=== PATIENT | female | born 1940 | race Asian ===

== ENCOUNTER 2017-08-16 17:30 | Emergency (ER) | payer MEDICARE ==
[~2017-08-16] VITALS: Ht 149.9 cm; Wt 52.3 kg
[~2017-08-16 17:30] MED LIST: ASPI-1198 PO; ATEN100T PO; CALC-590 PO; GINK30CA PO; HYDR25TA PO; MULT1TAB PO; PYRI50TA9 PO; VITA100024 PO
[2017-08-16] MEDS ORDERED: METO50 PO (17:46)
[2017-08-16] MEDS ORDERED: LOSA50TA37 PO (17:46)
[2017-08-16] MEDS: ACETAMINOPHEN 500 MG TABLET PO ONE ×2 (19:31→19:49)
[2017-08-16 19:52] LABS: BASOPHILS % (AUTO) 0.8 % (0.0-2.0); EOSINOPHILS % (AUTO) 1.9 % (1.0-6.0); HEMATOCRIT 31.4 % (36-46); HEMOGLOBIN 10.4 g/dL (12.0-16.0); LYMPHOCYTES # (AUTO) 0.7 K/uL (1.0-4.8); LYMPHOCYTES % (AUTO) 17.6 % (22.0-44.0); MEAN CORPUSCULAR HEMOGLOBIN 31.5 pg (26.0-34.0); MEAN CORPUSCULAR HGB CONC 33.3 G/dL (31.0-37.0); MEAN CORPUSCULAR VOLUME 95 fL (80-100); MONOCYTES # (AUTO) 0.5 K/uL (0.1-1.0); MONOCYTES % (AUTO) 14.2 % (2.0-9.0); NEUTROPHILS # (AUTO) 2.5 K/uL (1.8-7.7); NEUTROPHILS % (AUTO) 65.5 % (40.0-70.0); PLATELET COUNT (AUTO) 168 K/uL (150-450); RED BLOOD CELL COUNT(AUTO) 3.31 MIL/uL (4.00-5.20); RED CELL DISTRIBUTION WIDTH 13.8 % (11.5-14.5)
[2017-08-16] MEDS: METOPROLOL TARTRATE 50 MG TABLET PO ONE ×2 (19:56→20:03)
[2017-08-16 20:01] LABS: CALCIUM, TOTAL 8.5 mg/dL (8.8-10.5); CREATININE 0.91 mg/dL (0.60-1.30); POTASSIUM 3.4 mmol/L (3.5-5.1)
[2017-08-16 20:07] LABS: ALBUMIN 3.4 g/dL (3.4-5.0); BILIRUBIN,TOTAL 0.4 mg/dL (0.1-1.0); TOTAL PROTEIN, SERUM 7.4 g/dL (6.4-8.2)
[2017-08-16 20:57] VITALS: BP 181/68
[2017-08-16 20:58] LABS: PLATELET MORPHOLOGY COMMENT NORMAL
== END 2017-08-16 21:21 | disposition home or self-care (01) ==
LOC: EMS 17:32
DX: I10 Essential (primary) hypertension (principal); J40 Bronchitis, not specified as acute or chronic; Z79.82 Long term (current) use of aspirin
CPT/HCPCS: 93005; 99285

== ENCOUNTER 2017-08-23 17:54 | Emergency (ER) | payer MEDICARE ==
[~2017-08-23] VITALS: Ht 144.8 cm; Wt 50.0 kg
[~2017-08-23 17:54] MED LIST changes: -ATEN100T PO; +LOSA50TA37 PO; +METO50 PO
[2017-08-23 20:58] LABS: BASOPHILS # (AUTO) 0.03 K/uL (0.00-0.20); BASOPHILS % (AUTO) 0.7 % (0.0-2.0); EOSINOPHILS % (AUTO) 2.01 % (1.0-6.0); HEMATOCRIT 31.6 % (36-46); HEMOGLOBIN 10.7 g/dL (12.0-16.0); LYMPHOCYTES # (AUTO) 1.4 K/uL (1.0-4.8); MEAN CORPUSCULAR HEMOGLOBIN 31.4 pg (26.0-34.0); MEAN CORPUSCULAR HGB CONC 33.7 G/dL (31.0-37.0); MEAN CORPUSCULAR VOLUME 93 fL (80-100); MONOCYTES # (AUTO) 0.6 K/uL (0.1-1.0); NEUTROPHILS % (AUTO) 58.3 % (40.0-70.0); PLATELET COUNT (AUTO) 213 K/uL (150-450); RED BLOOD CELL COUNT(AUTO) 3.39 MIL/uL (4.00-5.20); RED CELL DISTRIBUTION WIDTH 13.3 % (11.5-14.5)
[2017-08-23] MEDS ORDERED: HYDROCHLOROTHIAZIDE 25 MG TABLET PO ONE (21:00)
[2017-08-23 21:10] LABS: ANION GAP 8 mmol/L (8-16); CALCIUM, TOTAL 9.2 mg/dL (8.8-10.5); CARBON DIOXIDE 30 mmol/L (22-29); CHLORIDE 92 mmol/L (98-107); CREATININE 0.78 mg/dL (0.60-1.30); GLOMERULAR FILTR. RATE CALC > 60 mL/min (>60); GLUCOSE,RANDOM 100 mg/dL (70-110); POTASSIUM 3.8 mmol/L (3.5-5.1); SODIUM SERUM 130 mmol/L (136-145); UREA NITROGEN, BLOOD 19 mg/dL (7-18)
[2017-08-23 21:35] LABS: ALANINE AMINOTRANSFERASE 36 U/L (12-78); ALBUMIN 3.4 g/dL (3.4-5.0); ALKALINE PHOSPHATASE 52 U/L (46-116); ASPARTATE AMINOTRANSFERASE 40 U/L (15-37); BILIRUBIN,TOTAL 0.4 mg/dL (0.1-1.0); CREATINE KINASE MB 3.1 ng/mL (0-5); CREATINE KINASE, TOTAL 295 U/L (26-192); TOTAL PROTEIN, SERUM 7.2 g/dL (6.4-8.2)
[2017-08-23 21:43] LABS: B-TYPE NATRIURETIC PEPTIDE 229 pg/mL (0-100)
[2017-08-23 22:04] LABS: APPEARANCE,URINE CLEAR (CLEAR); BILIRUBIN,URINE NEGATIVE (NEGATIVE); GLUCOSE, URINE (UA) NEGATIVE (NEGATIVE); KETONES,URINE NEGATIVE (NEGATIVE); LEUKOCYTE ESTERASE ,URINE NEGATIVE (NEGATIVE); NITRATE,URINE NEGATIVE (NEGATIVE); OCCULT BLOOD,URINE NEGATIVE (NEGATIVE); PROTEIN,URINE NEGATIVE (NEGATIVE); UROBILINOGEN,URINE 0.2 mg/dL (<=1.0)
[2017-08-23 22:50] VITALS: BP 159/73
== END 2017-08-23 23:22 | disposition home or self-care (01) ==
LOC: EMS 17:55
DX: I10 Essential (primary) hypertension (principal); F41.9 Anxiety disorder, unspecified
CPT/HCPCS: 93005; 99285

== ENCOUNTER 2018-03-02 04:23 | Inpatient (IN) | payer MEDICARE, MEDICAID ==
[~2018-03-02] VITALS: Ht 154.9 cm; Wt 50.7 kg
[2018-03-02] MEDS ORDERED: LOSA-30 PO (04:40)
[2018-03-02 05:17] LABS: BASOPHILS % (AUTO) 0.7 % (0.0-2.0); EOSINOPHILS % (AUTO) 0.4 % (1.0-6.0); HEMATOCRIT 34.6 % (36-46); HEMOGLOBIN 12.2 g/dL (12.0-16.0); LYMPHOCYTES # (AUTO) 0.8 K/uL (1.0-4.8); LYMPHOCYTES % (AUTO) 23.4 % (22.0-44.0); MEAN CORPUSCULAR HGB CONC 35.4 G/dL (31.0-37.0); MEAN CORPUSCULAR VOLUME 91 fL (80-100); MONOCYTES # (AUTO) 0.2 K/uL (0.1-1.0); MONOCYTES % (AUTO) 5.9 % (2.0-9.0); NEUTROPHILS # (AUTO) 2.4 K/uL (1.8-7.7); NEUTROPHILS % (AUTO) 69.6 % (40.0-70.0); PLATELET COUNT (AUTO) 199 K/uL (150-450); RED BLOOD CELL COUNT(AUTO) 3.82 MIL/uL (4.00-5.20); RED CELL DISTRIBUTION WIDTH 12.6 % (11.5-14.5)
[2018-03-02] MEDS ORDERED: CloNIDine HCL 0.2 MG TABLET PO ONE (05:30)
[2018-03-02 05:45] LABS: B-TYPE NATRIURETIC PEPTIDE 170 pg/mL (0-100)
[2018-03-02 05:46] LABS: CREATINE KINASE, TOTAL 349 U/L (26-192)
[2018-03-02 05:50] LABS: CREATINE KINASE MB < 0.5 ng/mL (0-5)
[2018-03-02 06:13] LABS: ALANINE AMINOTRANSFERASE 27 U/L (12-78); ALBUMIN 3.9 g/dL (3.4-5.0); ALKALINE PHOSPHATASE 41 U/L (46-116); ANION GAP 4 mmol/L (8-16); ASPARTATE AMINOTRANSFERASE 41 U/L (15-37); BILIRUBIN,TOTAL 1.3 mg/dL (0.1-1.0); CARBON DIOXIDE 31 mmol/L (22-29); CHLORIDE 74 mmol/L (98-107); GLOMERULAR FILTR. RATE CALC > 60 mL/min (>60); GLUCOSE,RANDOM 118 mg/dL (70-110); TOTAL PROTEIN, SERUM 7.8 g/dL (6.4-8.2); UREA NITROGEN, BLOOD 13 mg/dL (7-18)
[2018-03-02 06:16] LABS: SODIUM SERUM 109 mmol/L (136-145)
[2018-03-02 06:17] LABS: POTASSIUM 2.7 mmol/L (3.5-5.1)
[2018-03-02] MEDS: POTASSIUM CHL 10 MEQ/WATER 50 ML IV SCH ×4 (06:44→13:29)
[2018-03-02] MEDS ORDERED: SODIUM CHLORIDE 0.9% 1,000 ML IV ONE (06:45)
[2018-03-02 06:52] LABS: SODIUM,URINE RANDOM 111 mmol/l (20-110)
[2018-03-02 06:53] LABS: APPEARANCE,URINE CLOUDY (CLEAR); BILIRUBIN,URINE NEGATIVE (NEGATIVE); GLUCOSE, URINE (UA) NEGATIVE (NEGATIVE); KETONES,URINE NEGATIVE (NEGATIVE); LEUKOCYTE ESTERASE ,URINE NEGATIVE (NEGATIVE); NITRATE,URINE NEGATIVE (NEGATIVE); OCCULT BLOOD,URINE TRACE (NEGATIVE); PROTEIN,URINE SEE CONFIRM (NEGATIVE); UROBILINOGEN,URINE 0.2 mg/dL (<=1.0)
[2018-03-02] MEDS ORDERED: SODIUM CHLORIDE 3% 500 ML IV ONE ×2 (07:00→11:45)
[2018-03-02 07:13] LABS: OSMOLALITY 232 mOS/kg (270-310)
[2018-03-02 07:17] LABS: SULFOSALICYLIC ACID,URINE 3+ (Negative)
[2018-03-02 07:19] LABS: BACTERIA,URINE Rare /HPF (None Seen); SQUAMOUS EPITHELIAL CELL,UR Rare /LPF (None Seen); WBC,URINE 0-2 /HPF (0-5)
[2018-03-02 07:27] LABS: OSMOLALITY,URINE 374 mOS/kg (50-1200)
[2018-03-02] MEDS ORDERED: HydrALAZINE HCL 20 MG/ML VIAL IVP PRN (10:15)
[2018-03-02 10:45] VITALS: BP 162/81
[2018-03-02 11:21] LABS: ANION GAP 8 mmol/L (8-16); CALCIUM, TOTAL 8.3 mg/dL (8.8-10.5); CARBON DIOXIDE 28 mmol/L (22-29); CHLORIDE 77 mmol/L (98-107); CREATININE 0.64 mg/dL (0.60-1.30); GLUCOSE,RANDOM 116 mg/dL (70-110); POTASSIUM 3.2 mmol/L (3.5-5.1); UREA NITROGEN, BLOOD 10 mg/dL (7-18)
[2018-03-02 11:25] LABS: SODIUM SERUM 113 mmol/L (136-145)
[2018-03-02 11:26] LABS: GLOMERULAR FILTR. RATE CALC > 60 mL/min (>60)
[2018-03-02 11:45] LABS: THYROID STIMULATING HORMONE 0.43 uIU/mL (0.36-3.74)
[2018-03-02 12:00] VITALS: BP 152/67
[2018-03-02] MEDS ORDERED: SODIUM CHLORIDE 0.9% 500 ML IV ONE (12:46)
[2018-03-02 13:09] LABS: CREATININE,URINE RANDOM 19.2 mg/dL (30.0-125.0)
[2018-03-02] MEDS ORDERED: ZOLPIDEM TARTRATE 5 MG TABLET PO PRN (14:15)
[2018-03-02] MEDS ORDERED: ONDANSETRON HCL 4 MG/2 ML VIAL IVP PRN (14:15)
[2018-03-02] MEDS ORDERED: 0.9% SODIUM CHLORIDE 10 ML SYRINGE IVP PRN (14:15)
[2018-03-02] MEDS: PANTOPRAZOLE SODIUM 40 MG/VIAL IVP SCH (14:40)
[2018-03-02 16:00] VITALS: BP 141/72
[2018-03-02] MEDS: HEPARIN SODIUM,PORCINE 5,000 UNITS/ML VIAL SQ SCH ×2 (16:17→23:21)
[2018-03-02 17:25] LABS: ANION GAP 9 mmol/L (8-16); CALCIUM, TOTAL 8.2 mg/dL (8.8-10.5); CARBON DIOXIDE 26 mmol/L (22-29); CHLORIDE 82 mmol/L (98-107); CREATININE 0.67 mg/dL (0.60-1.30); GLUCOSE,RANDOM 111 mg/dL (70-110); POTASSIUM 3.7 mmol/L (3.5-5.1); UREA NITROGEN, BLOOD 13 mg/dL (7-18)
[2018-03-02 17:30] LABS: SODIUM SERUM 117 mmol/L (136-145)
[2018-03-02 17:32] LABS: GLOMERULAR FILTR. RATE CALC > 60 mL/min (>60)
[2018-03-02] MEDS ORDERED: PNEUMOCOCCAL VACCINE POLYVALENT 0.5 ML VIAL [PPSV23] IM ONE (18:15)
[2018-03-02 20:00] VITALS: BP 113/73
[2018-03-03] VITALS (9 sets, daily range): BP systolic 136–197; BP diastolic 60–93
[2018-03-03] MEDS ORDERED: COSYNTROPIN 0.25 MG VIAL IVP ONE (05:15)
[2018-03-03 05:18] LABS: ALANINE AMINOTRANSFERASE 28 U/L (12-78); ALBUMIN 3.4 g/dL (3.4-5.0); ALKALINE PHOSPHATASE 36 U/L (46-116); ANION GAP 8 mmol/L (8-16); ASPARTATE AMINOTRANSFERASE 39 U/L (15-37); CALCIUM, TOTAL 8.3 mg/dL (8.8-10.5); CARBON DIOXIDE 26 mmol/L (22-29); CHLORIDE 88 mmol/L (98-107); CREATININE 0.62 mg/dL (0.60-1.30); GLUCOSE,RANDOM 94 mg/dL (70-110); POTASSIUM 3.1 mmol/L (3.5-5.1); TOTAL PROTEIN, SERUM 6.9 g/dL (6.4-8.2); UREA NITROGEN, BLOOD 12 mg/dL (7-18)
[2018-03-03 05:19] LABS: GLOMERULAR FILTR. RATE CALC > 60 mL/min (>60)
[2018-03-03 05:20] LABS: SODIUM SERUM 122 mmol/L (136-145)
[2018-03-03 05:26] LABS: BASOPHILS % (AUTO) 0.4 % (0.0-2.0); EOSINOPHILS % (AUTO) 0.8 % (1.0-6.0); HEMATOCRIT 33.2 % (36-46); HEMOGLOBIN 11.8 g/dL (12.0-16.0); LYMPHOCYTES % (AUTO) 24.3 % (22.0-44.0); MEAN CORPUSCULAR HEMOGLOBIN 32.4 pg (26.0-34.0); MEAN CORPUSCULAR HGB CONC 35.5 G/dL (31.0-37.0); MEAN CORPUSCULAR VOLUME 91 fL (80-100); MONOCYTES # (AUTO) 0.4 K/uL (0.1-1.0); MONOCYTES % (AUTO) 8.8 % (2.0-9.0); NEUTROPHILS # (AUTO) 2.7 K/uL (1.8-7.7); NEUTROPHILS % (AUTO) 65.7 % (40.0-70.0); PLATELET COUNT (AUTO) 213 K/uL (150-450); RED BLOOD CELL COUNT(AUTO) 3.64 MIL/uL (4.00-5.20); RED CELL DISTRIBUTION WIDTH 12.9 % (11.5-14.5)
[2018-03-03] MEDS: PANTOPRAZOLE SODIUM 40 MG/VIAL IVP SCH (07:38)
[2018-03-03] MEDS: LOSARTAN POTASSIUM 50 MG TABLET PO SCH (07:38)
[2018-03-03] MEDS: HEPARIN SODIUM,PORCINE 5,000 UNITS/ML VIAL SQ SCH ×3 (07:38→23:59)
[2018-03-03] MEDS ORDERED: POTASSIUM CHL 10 MEQ/WATER 50 ML IV PRN (10:30)
[2018-03-03] MEDS ORDERED: POTASSIUM CHLORIDE 20 MEQ ER TABLET PO PRN (10:30)
[2018-03-03] MEDS ORDERED: ACETAMINOPHEN 325 MG TABLET PO PRN (10:30)
[2018-03-03] MEDS ORDERED: POTASSIUM CHLORIDE 10% 40 MEQ/30 ML LIQUID UDCUP PO PRN (10:30)
[2018-03-03] MEDS ORDERED: MAGNESIUM SULFATE 2 GM/WATER 50 ML IV ONE (11:00)
[2018-03-03 11:48] LABS: ANION GAP 11 mmol/L (8-16); CALCIUM, TOTAL 8.3 mg/dL (8.8-10.5); CARBON DIOXIDE 26 mmol/L (22-29); CHLORIDE 87 mmol/L (98-107); CREATININE 0.76 mg/dL (0.60-1.30); GLUCOSE,RANDOM 131 mg/dL (70-110); POTASSIUM 3.9 mmol/L (3.5-5.1); UREA NITROGEN, BLOOD 14 mg/dL (7-18)
[2018-03-03 11:49] LABS: GLOMERULAR FILTR. RATE CALC > 60 mL/min (>60); SODIUM SERUM 124 mmol/L (136-145)
[2018-03-03] MEDS ORDERED: DEXTROSE 5%-WATER 1,000 ML IV SCH (12:00)
[2018-03-03 16:30] LABS: ANION GAP 10 mmol/L (8-16); CARBON DIOXIDE 24 mmol/L (22-29); CHLORIDE 88 mmol/L (98-107); CREATININE 0.84 mg/dL (0.60-1.30); GLUCOSE,RANDOM 178 mg/dL (70-110); PHOSPHORUS 2.5 mg/dL (2.5-4.9); POTASSIUM 3.6 mmol/L (3.5-5.1); UREA NITROGEN, BLOOD 15 mg/dL (7-18)
[2018-03-03 16:38] LABS: GLOMERULAR FILTR. RATE CALC > 60 mL/min (>60); SODIUM SERUM 122 mmol/L (136-145)
[2018-03-04] VITALS (8 sets, daily range): BP systolic 142–162; BP diastolic 70–95
[2018-03-04 07:23] LABS: BASOPHILS % (AUTO) 0.8 % (0.0-2.0); EOSINOPHILS % (AUTO) 0.5 % (1.0-6.0); HEMATOCRIT 32.1 % (36-46); HEMOGLOBIN 11.1 g/dL (12.0-16.0); LYMPHOCYTES # (AUTO) 1.1 K/uL (1.0-4.8); LYMPHOCYTES % (AUTO) 20.2 % (22.0-44.0); MEAN CORPUSCULAR HGB CONC 34.7 G/dL (31.0-37.0); MEAN CORPUSCULAR VOLUME 92 fL (80-100); MONOCYTES # (AUTO) 0.4 K/uL (0.1-1.0); MONOCYTES % (AUTO) 7.7 % (2.0-9.0); NEUTROPHILS # (AUTO) 3.8 K/uL (1.8-7.7); NEUTROPHILS % (AUTO) 70.8 % (40.0-70.0); PLATELET COUNT (AUTO) 212 K/uL (150-450); RED BLOOD CELL COUNT(AUTO) 3.48 MIL/uL (4.00-5.20)
[2018-03-04 07:41] LABS: ANION GAP 8 mmol/L (8-16); CARBON DIOXIDE 24 mmol/L (22-29); CHLORIDE 94 mmol/L (98-107); CREATININE 0.65 mg/dL (0.60-1.30); GLUCOSE,RANDOM 105 mg/dL (70-110); PHOSPHORUS 2.8 mg/dL (2.5-4.9); POTASSIUM 3.7 mmol/L (3.5-5.1); SODIUM SERUM 126 mmol/L (136-145); UREA NITROGEN, BLOOD 17 mg/dL (7-18)
[2018-03-04 07:42] LABS: GLOMERULAR FILTR. RATE CALC > 60 mL/min (>60)
[2018-03-04] MEDS: HEPARIN SODIUM,PORCINE 5,000 UNITS/ML VIAL SQ SCH ×2 (08:43→16:20)
[2018-03-04] MEDS: LOSARTAN POTASSIUM 50 MG TABLET PO SCH (08:44)
[2018-03-04] MEDS: PANTOPRAZOLE SODIUM 40 MG/VIAL IVP SCH (08:44)
[2018-03-04] MEDS: AmLODIPine BESYLATE 5 MG TABLET PO SCH (12:02)
[2018-03-04] MEDS: METOPROLOL SUCCINATE 50 MG ER TABLET PO SCH (13:43)
[2018-03-04 18:21] LABS: ANION GAP 7 mmol/L (8-16); CARBON DIOXIDE 26 mmol/L (22-29); CHLORIDE 92 mmol/L (98-107); CREATININE 0.76 mg/dL (0.60-1.30); GLUCOSE,RANDOM 103 mg/dL (70-110); POTASSIUM 4.6 mmol/L (3.5-5.1); SODIUM SERUM 125 mmol/L (136-145); UREA NITROGEN, BLOOD 21 mg/dL (7-18)
[2018-03-04 18:24] LABS: GLOMERULAR FILTR. RATE CALC > 60 mL/min (>60)
[2018-03-04] MEDS: SODIUM CHLORIDE 1 GM TABLET PO SCH (20:16)
[2018-03-05] MEDS: SODIUM CHLORIDE 1 GM TABLET PO SCH ×3 (00:33→16:31)
[2018-03-05] MEDS: HEPARIN SODIUM,PORCINE 5,000 UNITS/ML VIAL SQ SCH ×3 (00:33→16:31)
[2018-03-05 00:52] VITALS: BP 157/100
[2018-03-05 05:32] VITALS: BP 160/93
[2018-03-05 06:31] LABS: BASOPHILS % (AUTO) 1.1 % (0.0-2.0); EOSINOPHILS % (AUTO) 2.2 % (1.0-6.0); HEMATOCRIT 33.8 % (36-46); HEMOGLOBIN 11.7 g/dL (12.0-16.0); LYMPHOCYTES # (AUTO) 1.4 K/uL (1.0-4.8); LYMPHOCYTES % (AUTO) 25.5 % (22.0-44.0); MEAN CORPUSCULAR HEMOGLOBIN 32.2 pg (26.0-34.0); MEAN CORPUSCULAR HGB CONC 34.6 G/dL (31.0-37.0); MEAN CORPUSCULAR VOLUME 93 fL (80-100); MONOCYTES # (AUTO) 0.4 K/uL (0.1-1.0); MONOCYTES % (AUTO) 6.9 % (2.0-9.0); NEUTROPHILS # (AUTO) 3.5 K/uL (1.8-7.7); NEUTROPHILS % (AUTO) 64.3 % (40.0-70.0); PLATELET COUNT (AUTO) 226 K/uL (150-450); RED BLOOD CELL COUNT(AUTO) 3.63 MIL/uL (4.00-5.20); RED CELL DISTRIBUTION WIDTH 13.4 % (11.5-14.5)
[2018-03-05 06:48] LABS: ANION GAP 8 mmol/L (8-16); CARBON DIOXIDE 26 mmol/L (22-29); CHLORIDE 98 mmol/L (98-107); CREATININE 0.72 mg/dL (0.60-1.30); GLUCOSE,RANDOM 91 mg/dL (70-110); PHOSPHORUS 2.4 mg/dL (2.5-4.9); POTASSIUM 4.5 mmol/L (3.5-5.1); SODIUM SERUM 132 mmol/L (136-145); UREA NITROGEN, BLOOD 17 mg/dL (7-18)
[2018-03-05 06:51] LABS: GLOMERULAR FILTR. RATE CALC > 60 mL/min (>60)
[2018-03-05 08:00] VITALS: BP 164/101
[2018-03-05] MEDS: PANTOPRAZOLE SODIUM 40 MG/VIAL IVP SCH (08:08)
[2018-03-05] MEDS: LOSARTAN POTASSIUM 50 MG TABLET PO SCH (08:09)
[2018-03-05] MEDS: AmLODIPine BESYLATE 5 MG TABLET PO SCH ×2 (08:09→20:57)
[2018-03-05] MEDS: METOPROLOL SUCCINATE 50 MG ER TABLET PO SCH (08:09)
[2018-03-05 11:16] VITALS: BP 155/79
[2018-03-05] MEDS: POTASSIUM PHOS/SODIUM PHOS MIXTURE 1 POWDER PACKET PO SCH ×2 (11:17→20:57)
[2018-03-05 15:39] VITALS: BP 159/80
[2018-03-05] MEDS: HydrALAZINE HCL 25 MG TABLET PO SCH ×2 (16:31→20:57)
[2018-03-05 20:50] VITALS: BP 157/76
[2018-03-05] MEDS: GABAPENTIN 100 MG CAPSULE PO SCH (20:57)
[2018-03-06 00:01] VITALS: BP 156/81
[2018-03-06] MEDS: SODIUM CHLORIDE 1 GM TABLET PO SCH ×2 (00:08→08:32)
[2018-03-06 04:42] VITALS: BP 151/79
[2018-03-06 07:07] LABS: ANION GAP 8 mmol/L (8-16); CALCIUM, TOTAL 8.5 mg/dL (8.8-10.5); CARBON DIOXIDE 27 mmol/L (22-29); CHLORIDE 98 mmol/L (98-107); CREATININE 0.72 mg/dL (0.60-1.30); GLUCOSE,RANDOM 92 mg/dL (70-110); POTASSIUM 4.4 mmol/L (3.5-5.1); SODIUM SERUM 133 mmol/L (136-145); UREA NITROGEN, BLOOD 19 mg/dL (7-18)
[2018-03-06 07:08] LABS: GLOMERULAR FILTR. RATE CALC > 60 mL/min (>60)
[2018-03-06 07:33] LABS: EOSINOPHILS % (AUTO) 1.6 % (1.0-6.0); HEMATOCRIT 34.7 % (36-46); HEMOGLOBIN 11.9 g/dL (12.0-16.0); LYMPHOCYTES # (AUTO) 1.1 K/uL (1.0-4.8); MEAN CORPUSCULAR HGB CONC 34.3 G/dL (31.0-37.0); MEAN CORPUSCULAR VOLUME 93 fL (80-100); MONOCYTES # (AUTO) 0.4 K/uL (0.1-1.0); MONOCYTES % (AUTO) 6.8 % (2.0-9.0); NEUTROPHILS # (AUTO) 3.8 K/uL (1.8-7.7); NEUTROPHILS % (AUTO) 70.6 % (40.0-70.0); PLATELET COUNT (AUTO) 214 K/uL (150-450); RED BLOOD CELL COUNT(AUTO) 3.72 MIL/uL (4.00-5.20); RED CELL DISTRIBUTION WIDTH 13.7 % (11.5-14.5)
[2018-03-06] MEDS: HEPARIN SODIUM,PORCINE 5,000 UNITS/ML VIAL SQ SCH ×3 (08:00→16:00)
[2018-03-06] MEDS: LOSARTAN POTASSIUM 50 MG TABLET PO SCH (08:33)
[2018-03-06] MEDS: METOPROLOL SUCCINATE 50 MG ER TABLET PO SCH (08:33)
[2018-03-06] MEDS: PANTOPRAZOLE SODIUM 40 MG/VIAL IVP SCH (08:33)
[2018-03-06] MEDS: AmLODIPine BESYLATE 5 MG TABLET PO SCH ×2 (08:33→20:44)
[2018-03-06] MEDS ORDERED: HydrALAZINE HCL 25 MG TABLET PO SCH (09:00)
[2018-03-06 11:12] VITALS: BP 153/77
[2018-03-06 15:07] VITALS: BP 154/71
[2018-03-06] MEDS: HydrALAZINE HCL 50 MG TABLET PO SCH ×2 (16:23→20:44)
[2018-03-06 20:30] VITALS: BP 146/76
[2018-03-06] MEDS: GABAPENTIN 100 MG CAPSULE PO SCH (20:44)
[2018-03-07 00:13] VITALS: BP 154/78
[2018-03-07 05:05] VITALS: BP 149/83
[2018-03-07 07:21] VITALS: BP 145/76
[2018-03-07] MEDS: HEPARIN SODIUM,PORCINE 5,000 UNITS/ML VIAL SQ SCH ×2 (08:00)
[2018-03-07] MEDS: PANTOPRAZOLE SODIUM 40 MG/VIAL IVP SCH (08:09)
[2018-03-07] MEDS: LOSARTAN POTASSIUM 50 MG TABLET PO SCH (08:09)
[2018-03-07] MEDS: HydrALAZINE HCL 50 MG TABLET PO SCH (08:09)
[2018-03-07] MEDS: METOPROLOL SUCCINATE 50 MG ER TABLET PO SCH (08:09)
[2018-03-07] MEDS ORDERED: AmLODIPine BESYLATE 10 MG TABLET PO SCH (09:00)
[2018-03-07 11:20] VITALS: BP 118/63
[2018-03-07] MEDS ORDERED: AMLO-512 PO (13:45)
[2018-03-07] MEDS ORDERED: GABA-529 PO (13:46)
[2018-03-07] MEDS ORDERED: LOSA50TA37 PO (13:47)
[2018-03-07] MEDS ORDERED: METO-558 PO (13:48)
== END 2018-03-07 15:05 | disposition home or self-care (01) | DRG 640 ==
LOC: EMS 04:23 → ICU 09:33 → 5S 03-03 12:30
PROVIDERS: ADMIT Internal Medicine; ATTEND Internal Medicine
DX: E87.1 Hypo-osmolality and hyponatremia (principal); I50.33 Acute on chronic diastolic (congestive) heart failure; I11.0 Hypertensive heart disease with heart failure; M81.0 Age-related osteoporosis without current pathological fracture; E11.9 Type 2 diabetes mellitus without complications; E87.6 Hypokalemia; M19.90 Unspecified osteoarthritis, unspecified site; Z79.82 Long term (current) use of aspirin; Z79.899 Other long term (current) drug therapy; Z28.21 Immunization not carried out because of patient refusal
CPT/HCPCS: 82533; 82570; 83735; 83930; 83935; 84100; 84133; 84300; 84443; 84550; 87081; 93005; 93306; 99285; C9113; J0360; J0834; J1644; J3475; J3480; J7030; J7040; J7060

== ENCOUNTER 2021-11-30 10:39 | Emergency (ER) | payer MEDICARE, MEDICAID ==
[~2021-11-30] VITALS: Ht 152.4 cm; Wt 51.4 kg
[~2021-11-30 10:39] MED LIST changes: +AMLO-258 PO; +GABA-1216 PO; -HYDR25TA PO; +LOSA-382 PO; -LOSA50TA37 PO; +METO-558 PO; +PYRI-14 PO; -PYRI50TA9 PO; -VITA100024 PO; +[UNRECOGNIZED DRUG - CODE] PO
[2021-11-30] MEDS ORDERED: ACETAMINOPHEN 325 MG TABLET PO ONE (13:00)
[2021-11-30] MEDS ORDERED: ALEN70TA80 PO (13:05)
[2021-11-30] MEDS ORDERED: HYDR25TA84 PO (13:05)
[2021-11-30] MEDS ORDERED: AMLO-257 PO (13:05)
[2021-11-30] MEDS ORDERED: GINK60TA7 PO (13:08)
[2021-11-30] MEDS ORDERED: CALC-1038 PO (13:08)
[2021-11-30] MEDS ORDERED: MULT-1259 PO (13:08)
[2021-11-30] MEDS ORDERED: ACET-3385 PO (13:58)
[2021-11-30 14:20] VITALS: BP 140/89
== END 2021-11-30 14:49 | disposition home or self-care (01) ==
LOC: EMS 12:43
DX: S42.251A Displaced fracture of greater tuberosity of right humerus, initial encounter for closed fracture (principal); I10 Essential (primary) hypertension; Z79.82 Long term (current) use of aspirin; W19.XXXA Unspecified fall, initial encounter; Y93.89 Activity, other specified; Y92.89 Other specified places as the place of occurrence of the external cause; Y99.8 Other external cause status
CPT/HCPCS: 99283

== ENCOUNTER 2024-01-10 08:12 | Emergency (ER) | payer MEDICARE, MEDICAID ==
[~2024-01-10] VITALS: Ht 149.9 cm; Wt 54.5 kg
[~2024-01-10 08:12] MED LIST changes: +ACET-3385 PO; +ALEN70TA80 PO; +AMLO-257 PO; -AMLO-258 PO; +CALC-1038 PO; -CALC-590 PO; -GINK30CA PO; +GINK60TA7 PO; +HYDR25TA84 PO; +METO-325 PO; -METO-558 PO; -METO50 PO; +MULT-1259 PO; -MULT1TAB PO; +VITA100014 PO; -[UNRECOGNIZED DRUG - CODE] PO
[2024-01-10 08:19] VITALS: TEMP 98
[2024-01-10] MEDS ORDERED: KETO-108 OU (08:19)
[2024-01-10] MEDS ORDERED: AMLO5TAB66 PO (08:19)
[2024-01-10] MEDS ORDERED: CARV6.2534 PO (08:19)
[2024-01-10] MEDS ORDERED: LOSA100T59 PO (08:19)
[2024-01-10] MEDS ORDERED: GABA-529 PO (08:19)
[2024-01-10 09:14] VITALS: BP 158/75; PULSE 70; RESP 18
[2024-01-10] MEDS: METHOCARBAMOL 500 MG TABLET PO ONE (09:32)
[2024-01-10] MEDS: KETOROLAC TROMETHAMINE 30 MG/ML VIAL IM ONE (09:33)
[2024-01-10] MEDS: LIDOCAINE 5% TRANSDERMAL PATCH TD ONE (09:33)
[2024-01-10] MEDS ORDERED: IBUP-1492 PO (09:59)
[2024-01-10] MEDS ORDERED: METH-659 PO (09:59)
[2024-01-10] MEDS ORDERED: LIDO700A15 TP (10:00)
[2024-01-10 10:40] LABS: APPEARANCE,URINE CLEAR (CLEAR); BILIRUBIN,URINE NEGATIVE (NEGATIVE); COLOR,URINE YELLOW (YELLOW); GLUCOSE, URINE (UA) NEGATIVE (NEGATIVE); KETONES,URINE NEGATIVE (NEGATIVE); LEUKOCYTE ESTERASE ,URINE NEGATIVE (NEGATIVE); NITRATE,URINE NEGATIVE (NEGATIVE); OCCULT BLOOD,URINE NEGATIVE (NEGATIVE); PROTEIN,URINE NEGATIVE (NEGATIVE); SPECIFIC GRAVITIY, URINE 1.007 (1.003-1.030); UROBILINOGEN,URINE <=1.0 mg/dL (<=1.0)
== END 2024-01-10 11:15 | disposition home or self-care (01) ==
LOC: EMS 08:12
DX: S39.012A Strain of muscle, fascia and tendon of lower back, initial encounter (principal); R07.9 Chest pain, unspecified; X58.XXXA Exposure to other specified factors, initial encounter; Y93.89 Activity, other specified; Y92.89 Other specified places as the place of occurrence of the external cause; Y99.8 Other external cause status
CPT/HCPCS: 99284; 81003; 93005; 96372; J1885

== ENCOUNTER 2024-11-25 06:36 | Emergency (ER) | payer MEDICARE, MEDICAID ==
[~2024-11-25] VITALS: Ht 152.4 cm; Wt 45.5 kg
[~2024-11-25 06:36] MED LIST changes: -ACET-3385 PO; -ALEN70TA80 PO; -AMLO-257 PO; +AMLO5TAB66 PO; -ASPI-1198 PO; -CALC-1038 PO; +CARV6.2534 PO; -GABA-1216 PO; +GABA-529 PO; -GINK60TA7 PO; -HYDR25TA84 PO; +IBUP-1492 PO; +KETO-108 OU; +LIDO700A15 TP; -LOSA-382 PO; +LOSA100T59 PO; +METH-659 PO; -METO-325 PO; -MULT-1259 PO; -PYRI-14 PO; -VITA100014 PO
[2024-11-25 06:40] VITALS: TEMP 97.7
[2024-11-25] MEDS ORDERED: BACITRACIN 0.9 GM PACKET OINTMENT TP ONE (06:55)
[2024-11-25] MEDS ORDERED: HYDR25TA84 PO (07:05)
[2024-11-25] MEDS ORDERED: ALEN70TA80 PO (07:05)
[2024-11-25] MEDS: ACETAMINOPHEN 325 MG TABLET PO ONE (07:27)
[2024-11-25 07:44] VITALS: BP 124/63; PULSE 54; RESP 16; O2SAT 98
[2024-11-25 08:19] LABS: EOSINOPHILS % (AUTO) 2.7 % (1.0-6.0); HEMATOCRIT 34.9 % (36-46); HEMOGLOBIN 11.4 g/dL (12.0-16.0); LYMPHOCYTES # (AUTO) 0.6 K/uL (1.0-4.8); LYMPHOCYTES % (AUTO) 18.6 % (22.0-44.0); MEAN CORPUSCULAR HEMOGLOBIN 31.6 pg (26.0-34.0); MEAN CORPUSCULAR HGB CONC 32.7 G/dL (31.0-37.0); MEAN CORPUSCULAR VOLUME 97 fL (80-100); MONOCYTES # (AUTO) 0.2 K/uL (0.1-1.0); MONOCYTES % (AUTO) 7.4 % (2.0-9.0); NEUTROPHILS # (AUTO) 2.4 K/uL (1.8-7.7); NEUTROPHILS % (AUTO) 70.3 % (40.0-70.0); PLATELET COUNT (AUTO) 195 K/uL (150-450); RED BLOOD CELL COUNT(AUTO) 3.61 MIL/uL (4.00-5.20); RED CELL DISTRIBUTION WIDTH 13.9 % (11.5-14.5); WHITE BLOOD COUNT (AUTO) 3.3 K/uL (4.5-11.0)
[2024-11-25 08:25] LABS: ANION GAP 5 mmol/L (8-16); CALCIUM, TOTAL 8.7 mg/dL (8.8-10.5); CARBON DIOXIDE 30 mmol/L (22-29); CHLORIDE 98 mmol/L (98-107); CREATININE 0.74 mg/dL (0.60-1.30); GLOMERULAR FILTR. RATE CALC > 60 mL/min (>60); GLUCOSE,RANDOM 97 mg/dL (70-110); POTASSIUM 4.2 mmol/L (3.5-5.1); SODIUM SERUM 133 mmol/L (136-145); UREA NITROGEN, BLOOD 30 mg/dL (7-18)
[2024-11-25 08:33] LABS: TROPONIN I-HIGH SENSITIVITY 15 ng/L (<51)
[2024-11-25] MEDS: LIDOCAINE 1% 10 ML VIAL ID ONE (08:49)
[2024-11-25] MEDS: BACITRACIN 0.9 GM PACKET OINTMENT TP ONE (08:49)
[2024-11-25 09:22] LABS: RBC MORPHOLOGY COMMENT NORMAL RBC MORPH
== END 2024-11-25 09:19 | disposition home or self-care (01) ==
LOC: EMS 06:54
DX: S01.81XA Laceration without foreign body of other part of head, initial encounter (principal); I10 Essential (primary) hypertension; E87.1 Hypo-osmolality and hyponatremia; Z79.82 Long term (current) use of aspirin; Z79.899 Other long term (current) drug therapy; W01.0XXA Fall on same level from slipping, tripping and stumbling without subsequent striking against object, initial encounter; Y93.01 Activity, walking, marching and hiking; Y92.89 Other specified places as the place of occurrence of the external cause; Y99.8 Other external cause status
CPT/HCPCS: 99284; 70450; 80048; 84484; 85025; 36415; 72125; 12011; 93005; J3490